=== PATIENT | female | born 1990 | race Caucasian/White ===

== ENCOUNTER 2017-11-10 18:08 | Inpatient (IN) | payer OTHER ==
--- NOTE | 2017-11-10 19:18 | RAD REPORT ---
EXAM DESCRIPTION: US - Abdomen Exam Limited - 11/10/2017 6:58 pm CLINICAL HISTORY: Abdominal pain. COMPARISON: None. FINDINGS: The gallbladder wall is not thickened. A gallstone is not seen. The biliary tree is normal caliber. IMPRESSION: Unremarkable gallbladder ultrasound.
[2017-11-10 20:15] LABS: Absolute Lymphocytes (CBC) 3.1 K/uL (0.7-4.9); Absolute Monocytes 0.9 K/uL (0.1-1.3); Absolute Neutrophil 9.8 K/uL (1.8-8.0); Basophils % 0.5 % (0-1.3); Eosinophils % 1.9 % (0-4.4); Hematocrit 36.8 % (36.0-45.0); MCH 29.6 pg (27.0-35.0); MCV 89.1 fL (80-100); MPV 8.4 fL (7.6-11.3); Monocytes % 6.6 % (3.3-12.3); RBC Red Blood Cell Count 4.13 M/uL (3.86-4.86)
[2017-11-10 20:30] LABS: ALT/SGPT 144 U/L (12-78); AST/SGOT 121 U/L (15-37); Albumin 3.4 g/dL (3.4-5.0); Alkaline Phosphatase 142 U/L (45-117); BUN Blood Urea Nitrogen 6 mg/dL (7-18); Bicarbonate 28 mmol/L (21-32); Bilirubin Direct 0.2 mg/dL (0-0.2); Bilirubin Total 1.2 mg/dL (0.2-1.0); Glucose Level 89 mg/dL (74-106); Lipase 94 U/L (73-393); Potassium 3.8 mmol/L (3.5-5.1); Protein, Total 7.4 g/dL (6.4-8.2); Sodium Level 137 mmol/L (136-145)
[2017-11-10 21:35] LABS: Urine Blood NEGATIVE (NEG); Urine Glucose NEGATIVE (NEG); Urine Protein NEGATIVE (NEG); Urine Specific Gravity 1.015 (1.005-1.030); Urine pH 7.5 (5.0-7.0)
[2017-11-10] MEDS ORDERED: FENTANYL CITR 100 MCG/2 ML ONE (21:35)
[2017-11-10] MEDS ORDERED: ONDANSETRON 4 MG/2 ML VIAL ONE (21:35)
--- NOTE | 2017-11-10 21:43 | RAD REPORT ---
EXAM DESCRIPTION: CT - Abdomen Pelvis W Contrast - 11/10/2017 9:20 pm CLINICAL HISTORY: Abdominal pain with nausea. COMPARISON: none. TECHNIQUE: Computed axial tomography of the abdomen pelvis was obtained. 100 cc Isovue-300 was admin istered intravenously. Oral contrast was not requested which limits evaluation of bowel. All CT scans are performed using dose optimization technique as appropriate and may include automated exposure control or mA/KV adjustment according to patient size. FINDINGS: The liver, spleen, pancreas, adrenal and kidneys appear unremarkable. A diverticulum stems from the proximal transverse colon. The colon is narrowed. Moderate stranding is seen within the adjacent fat. The appendix is normal. A 2 centimeter left ovarian cyst is present without significant free-fluid. IMPRESSION: Narrowing of the proximal transverse colon with moderate stranding within the adjacent f at. Given that a diverticulum is seen this probably represents diverticulitis. Neoplasm can also have this appearance. Followup is recommended A 2 centimeter left ovarian cyst without significant free-fluid.
--- NOTE | 2017-11-10 21:55 | EDPHYS ---
Physician Documentation [facility] Name: Carine Catalan Age: 27 yrs Sex: Female : 1990 Arrival Date: 11/10/2017 Time: 18:09 Bed 14 Private MD: ED Physician Manny Cruz HPI: 11/10 20:15 This 27 yrs old Female presents to ER via Ambulatory with complaints of jr8 Abdominal Pain. 20:15 The patient presents with abdominal pain in the right upper quadrant. Onset: The jr8 symptoms/episode began/occurred acutely, today. The symptoms do not radiate. Associated signs and symptoms: none. The symptoms are described as stabbing. Modifying factors: The symptoms are alleviated by nothing, the symptoms are aggravated by food. Severity of pain: At its worst the pain was moderate in the emergency department the pain has improved mildly. The patient has not experienced similar symptoms in the past. The patient has not recently seen a physician. 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 - Social history:: Smoking status: Patient/guardian denies using tobacco. - Ebola Screening: : Patient negative for fever greater than or equal to 101.5 degrees Fahrenheit, and additional compatible Ebola Virus Disease symptoms Patient denies exposure to infectious person Patient denies travel to an Ebola-affected area in the 21 days before illness onset No symptoms or risks identified at this time. ROS: 20:15 Eyes: Negative for injury, pain, redness, and discharge, ENT: Negative for injury, jr8 pain, and discharge, Neck: Negative for injury, pain, and swelling, Cardiovascular: Negative for chest pain, palpitations, and edema, Respiratory: Negative for shortness of breath, cough, wheezing, and pleuritic chest pain, Back: Negative for injury and pain, MS/Extremity: Negative for injury and deformity, Skin: Negative for injury, rash, and discoloration, Neuro: Negative for headache, weakness, numbness, tingling, and seizure. 20:15 Abdomen/GI: Positive for abdominal pain, Negative for nausea, vomiting, and diarrhea, abdominal distension, anorexia, dysphagia, hematemesis, black/tarry stool, rectal pain, rectal bleeding, bowel incontinence, flatulence. Exam: 20:15 Eyes: Pupils equal round and reactive to light, extra-ocular motions intact. Lids and jr8 lashes normal. Conjunctiva and sclera are non-icteric and not injected. Cornea within normal limits. Periorbital areas with no swelling, redness, or edema. ENT: Nares patent. No nasal discharge, no septal abnormalities noted. Tympanic membranes are normal and external auditory canals are clear. Oropharynx with no redness, swelling, or masses, exudates, or evidence of obstruction, uvula midline. Mucous membranes moist. Neck: Trachea midline, no thyromegaly or masses palpated, and no cervical lymphadenopathy. Supple, full range of motion without nuchal rigidity, or vertebral point tenderness. No Meningismus. Cardiovascular: Regular rate and rhythm with a normal S1 and S2. No gallops, murmurs, or rubs. Normal PMI, no JVD. No pulse deficits. Respiratory: Lungs have equal breath sounds bilaterally, clear to auscultation and percussion. No rales, rhonchi or wheezes noted. No increased work of breathing, no retractions or nasal flaring. Back: No spinal tenderness. No costovertebral tenderness. Full range of motion. Skin: Warm, dry with normal turgor. Normal color with no rashes, no lesions, and no evidence of cellulitis. MS/ Extremity: Pulses equal, no cyanosis. Neurovascular intact. Full, normal range of motion. Neuro: Awake and alert, GCS 15, oriented to person, place, time, and situation. Cranial nerves II-XII grossly intact. Motor strength 5/5 in all extremities. Sensory grossly intact. Cerebellar exam normal. Normal gait. 20:15 Abdomen/GI: Inspection: abdomen appears normal, Bowel sounds: active, all quadrants, Palpation: soft, in all quadrants, moderate abdominal tenderness, in the right upper quadrant and right lower quadrant , mass, is not appreciated, rebound tenderness, is not appreciated, voluntary guarding, is not appreciated, involuntary guarding, is not appreciated, no appreciated organomegaly, Indicators: McBurney's point is tender, Wall's sign is negative, Rovsing's sign is negative, Liver: tenderness, is not appreciated. Vital Signs: 18:38 BP 120 / 80; Pulse 105; Resp 16; Temp 97.6; Pulse Ox 99% on R/A; Weight 79.38 kg; aj Height 5 ft. 4 in. (162.56 cm); 20:35 BP 106 / 63; Pulse 94; Resp 16; Pulse Ox 100% ; ms 22:20 BP 104 / 54; Pulse 91; Resp 18; Temp 98.1(O); Pulse Ox 100% on R/A; Pain 3/10; ak1 22:36 BP 105 / 73; Pulse 93; Resp 18; Temp 98.1(O); Pulse Ox 100% on R/A; ak1 18:38 Body Mass Index 30.04 (79.38 kg, 162.56 cm) aj MDM: 19:42 Patient medically screened. jr8 21:54 Data reviewed: vital signs, nurses notes, lab test result(s), radiologic studies, CT jr8 scan, and as a result, I will admit patient. Data interpreted: Pulse oximetry: on room air is 100 %. Interpretation: normal. Counseling: I had a detailed discussion with the patient and/or guardian regarding: the historical points, exam findings, and any diagnostic results supporting the discharge/admit diagnosis, lab results, radiology results, the need for further work-up and treatment in the hospital. Physician consultation: Denise Nolasco MD was called at 21:54, was contacted at 21:54, regarding admission, to the medical/surgical unit. consult, patient's condition, and will see patient. 11/10 19:43 Order name: Basic Metabolic Panel; Complete Time: 20:52 11/10 19:43 Order name: CBC with Diff; Complete Time: 20:52 11/10 19:43 Order name: Creatinine for Radiology; Complete Time: 20:52 11/10 19:43 Order name: Hepatic Function; Complete Time: 20:52 11/10 19:43 Order name: Lipase; Complete Time: 20:52 11/10 20:06 Order name: Urine Dipstick--Ancillary (enter results); Complete Time: 21:43 2 11/10 18:40 Order name: US Abdomen Limited; Complete Time: 19:42 11/10 20:06 Order name: Urine --Ancillary (enter results); Complete Time: 21:43 2 11/10 20:53 Order name: CT Abd/Pelvis - W/Contrast; Complete Time: 21:45 8 11/10 22:38 Order name: Lactate [facility] 11/10 22:38 Order name: Procalcitonin [facility] 11/10 19:43 Order name: Urine Test (obtain specimen); Complete Time: 19:59 [facility] 11/10 19:43 Order name: IV Saline Lock; Complete Time: 19:59 [facility] 11/10 19:43 Order name: Labs collected and sent; Complete Time: 20:00 [facility] 11/10 19:43 Order name: Urine Dipstick-Ancillary (obtain specimen); Complete Time: 19:47 Administered Medications: 21:32 Drug: Zofran 4 mg Route: IVP; Site: right antecubital; ak1 22:21 Follow up: Response: No adverse reaction ak1 21:33 Drug: fentaNYL (PF) 50 mcg Route: IVP; Site: right antecubital; ak1 22:25 Follow up: Response: No adverse reaction ak1 21:58 Drug: Flagyl 500 mg Volume: 100 ml; Route: IVPB; Rate: 200 ml/hr; Infused Over: 30 ak1 mins; Site: right antecubital; 22:25 Follow up: IV Status: Completed infusion ak1 22:29 Drug: Cipro 400 mg Volume: 200 ml; Route: IVPB; Infused Over: 60 mins; Site: right ak1 antecubital; 23:04 Follow up: IV Status: Infusion continued upon admission ak1 22:29 Drug: NS 0.9% 1000 ml Route: IV; Rate: 100 ml/hr; Site: right antecubital; ak1 23:04 Follow up: IV Status: Infusion continued upon admission ak1 Disposition: 11/11 02:13 Co-signature as Attending Physician, Manny Cruz MD I agree with the assessment and ps1 plan of care. Disposition: 11/10/17 21:55 Hospitalization ordered by Denise Nolasco for Inpatient Admission. Preliminary diagnosis is Acute Diverticulitis. - Bed requested for Telemetry/MedSurg (Inpatient). - Status is Inpatient Admission. ak1 - Condition is Stable. - Problem is new. - Symptoms have improved. UTI on Admission? No Signatures: Dispatcher [employer] EDMS Myrtle Neves RN ERNA kl Marley Whitman RN Marquise Edwards PA PA jr8 Mayra Deras RN RN ak1 Manny Cruz MD MD ps1 Corrections: (The following items were deleted from the chart) 11/10 22:50 21:55 Hospitalization Ordered by Denise Nolasco MD for Inpatient Admission. Preliminary diagnosis is Acute Diverticulitis. Bed requested for Telemetry/MedSurg (Inpatient). Status is Inpatient Admission. Condition is Stable. Problem is new. Symptoms have improved. UTI on Admission? No. jr8 23:05 22:50 11/10/2017 21:55 Hospitalization Ordered by Denise Nolasco MD for Inpatient ak1 Admission. Preliminary diagnosis is Acute Diverticulitis. Bed requested for Telemetry/MedSurg (Inpatient). Status is Inpatient Admission. Condition is Stable. Problem is new. Symptoms have improved. UTI on Admission? No. kl
--- NOTE | 2017-11-10 21:55 | ER ---
Nurse's Notes [facility] Name: Carine Catalan Age: 27 yrs Sex: Female : 1990 Arrival Date: 11/10/2017 Time: 18:09 Bed 14 Private MD: Diagnosis: Acute Diverticulitis Presentation: 11/10 18:36 Presenting complaint: Patient states: Right abdominal pain that started yesterday aj morning. Reports pain and nausea is worse after eating. Transition of care: patient was not received from another setting of care. Onset of symptoms was November 09, 2017. Risk Assessment: Do you want to hurt yourself or someone else? Patient reports no desire to harm self or others. Initial Sepsis Screen: Does the patient meet any 2 criteria? No. Patient's initial sepsis screen is negative. Does the patient have a suspected source of infection? No. Patient's initial sepsis screen is negative. Care prior to arrival: None. 18:36 Method Of Arrival: Ambulatory aj 18:36 Acuity: HARISH 3 aj Triage Assessment: 18:38 General: Appears in no apparent distress. comfortable, Behavior is calm, cooperative, aj appropriate for age. Pain: Complains of pain in right upper quadrant and right lower quadrant. Neuro: Level of Consciousness is awake, alert, obeys commands, Oriented to person, place, time, situation, Appropriate for age. Respiratory: Airway is patent Respiratory effort is even, unlabored, Respiratory pattern is regular, symmetrical. GI: Abdomen is flat, Reports upper abdominal pain, nausea. Derm: Skin is intact, is healthy with good turgor, Skin is pink, warm \T\ dry. normal. 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 - Social history:: Smoking status: Patient/guardian denies using tobacco. - Ebola Screening: : Patient negative for fever greater than or equal to 101.5 degrees Fahrenheit, and additional compatible Ebola Virus Disease symptoms Patient denies exposure to infectious person Patient denies travel to an Ebola-affected area in the 21 days before illness onset No symptoms or risks identified at this time. Screenin:35 Abuse screen: Denies threats or abuse. Denies injuries from another. Nutritional ak1 screening: No deficits noted. Tuberculosis screening: No symptoms or risk factors identified. Fall Risk None identified. Assessment: 19:34 General: Appears in no apparent distress. Behavior is calm, cooperative. Pain: ak1 Complains of pain in abdomen and right lower quadrant and right upper quadrant. Neuro: No deficits noted. Cardiovascular: No deficits noted. Respiratory: No deficits noted. GI: Bowel sounds present X 4 quads. Abd is soft X 4 quads. : No signs and/or symptoms were reported regarding the genitourinary system. EENT: No signs and/or symptoms were reported regarding the EENT system. Derm: No signs and/or symptoms reported regarding the dermatologic system. Musculoskeletal: No signs and/or symptoms reported regarding the musculoskeletal system. 20:53 Reassessment: Patient appears in no apparent distress at this time. No changes from ak1 previously documented assessment. Patient is alert, oriented x 3, equal unlabored respirations, skin warm/dry/pink. 21:26 Reassessment: pt returned from CT requesting pain medication, ERP notified. will ak1 continue to monitor and wait for new orders. Vital Signs: 18:38 BP 120 / 80; Pulse 105; Resp 16; Temp 97.6; Pulse Ox 99% on R/A; Weight 79.38 kg; aj Height 5 ft. 4 in. (162.56 cm); 20:35 BP 106 / 63; Pulse 94; Resp 16; Pulse Ox 100% ; ms 22:20 BP 104 / 54; Pulse 91; Resp 18; Temp 98.1(O); Pulse Ox 100% on R/A; Pain 3/10; ak1 22:36 BP 105 / 73; Pulse 93; Resp 18; Temp 98.1(O); Pulse Ox 100% on R/A; ak1 18:38 Body Mass Index 30.04 (79.38 kg, 162.56 cm) ED Course: 18:09 Patient arrived in ED. am2 18:37 Triage completed. aj 18:38 Arm band placed on right wrist. Patient placed in waiting room, Patient notified of aj wait time. 18:58 US Abdomen Limited In Process Unspecified. EDMS 19:29 Mayra Deras, RN is Primary Nurse. ak1 19:35 Patient has correct armband on for positive identification. Placed in gown. Bed in low ak1 position. Call light in reach. Side rails up X 1. Pulse ox on. NIBP on. 19:42 Marquise Escobar PA is PHCP. jr8 19:42 Manny Cruz MD is Attending Physician. jr8 20:02 Initial lab(s) drawn, by me, sent to lab. Urine collected: clean catch specimen. ak1 Inserted saline lock: 20 gauge in right antecubital area, using aseptic technique. Blood collected. 21:[address] via wheelchair. 2 21:20 CT completed. Patient tolerated procedure well. Patient moved back from CT. 2 21:28 CT Abd/Pelvis - W/Contrast In Process Unspecified. EDOH 21:55 Denise Nolasco MD is Hospitalizing Provider. jr8 23:01 No provider procedures requiring assistance completed. Patient admitted, IV remains in ak1 place. Administered Medications: 21:32 Drug: Zofran 4 mg Route: IVP; Site: right antecubital; ak1 22:21 Follow up: Response: No adverse reaction ak1 21:33 Drug: fentaNYL (PF) 50 mcg Route: IVP; Site: right antecubital; ak1 22:25 Follow up: Response: No adverse reaction ak1 21:58 Drug: Flagyl 500 mg Volume: 100 ml; Route: IVPB; Rate: 200 ml/hr; Infused Over: 30 ak1 mins; Site: right antecubital; 22:25 Follow up: IV Status: Completed infusion ak1 22:29 Drug: Cipro 400 mg Volume: 200 ml; Route: IVPB; Infused Over: 60 mins; Site: right ak1 antecubital; 23:04 Follow up: IV Status: Infusion continued upon admission ak1 22:29 Drug: NS 0.9% 1000 ml Route: IV; Rate: 100 ml/hr; Site: right antecubital; ak1 23:04 Follow up: IV Status: Infusion continued upon admission ak Outcome: 21:55 Decision to Hospitalize by Provider. jr8 23:03 Admitted to Med/surg accompanied by tech, family with patient, via wheelchair, room ak1 208, with chart, Other Cipro locked off to be continued upstairs, Hawa nurse for 208 informed. Report called to [facility]a 23:03 Condition: stable 23:03 Instructed on the need for admit. 23:05 Patient left the ED. ak1 Signatures: Dispatcher [employer] EDMarley Martinez, Luzmaria Jolly RN, ms, Josh, PA PA jr8 Krenek, Amber, RN RN ak1 Marley Abel am2 Michelle Pederson [facility]
[2017-11-10] MEDS ORDERED: METRONIDAZOLE 500mg IVPB 500 MG/100 ML BAG IV ONE (21:56)
[2017-11-10] MEDS ORDERED: CIPROFLOXACIN 400mg IV 400 MG/200 ML BAG IV ONE (22:13)
[2017-11-10] MEDS ORDERED: NA CHLORIDE 0.9% 1,000 ML ONE (22:13)
--- NOTE | 2017-11-10 22:45 | P.HP ---
Certification for Inpatient Patient admitted to: Inpatient With expected LOS: >2 Midnights Practitioner: I am a practitioner with admitting privileges, knowledge of patient current condition, hospital course, and medical plan of care. Services: Services provided to patient in accordance with Admission requirements found in Title 42 Section 412.3 of the Code of Federal Regulations Patient History Date of Service: 11/10/17 Reason for admission: acute diverticulitis History of Present Illness: Ms Catalan is a 27 years old woman with pretty benign past medical history, who started yesterday morning with right upper quadrant pain. She describe a constant dull pain, with periods of exacerbation. intensity 8/10, no radiated, associated with some nausea but not vomiting. She denied fever, chills or sweating episodes. No diarrhea reported. Lab work remarkable for leukocytosis, 14.2K, and abnormal liver enzymes. Abd US shows normal biliary tree without duct obstruction. CT abd/perlvis, remarkable for proximal transverse colon diverticulitis. Allergies No Known Allergies Allergy (Unverified 11/10/17 22:40) Home medications list reviewed: Yes - Past Medical/Surgical History Past Medical History: Reviewed- Non-Contributory -: x 2 - Family History Family History: Reviewed- Non-Contributory - Social History Smoking Status: Never smoker Alcohol use: Yes CD- Drugs: No Place of Residence: Home Review of Systems 10-point ROS is otherwise unremarkable Physical Examination - Physical Exam General: Alert, In no apparent distress HEENT: Atraumatic, PERRLA, Mucous membr. moist/pink, EOMI, Sclerae nonicteric Neck: Supple, 2+ carotid pulse no bruit, No LAD, Without JVD or thyroid abnormality Respiratory: Clear to auscultation bilaterally, Normal air movement Cardiovascular: Regular rate/rhythm, Normal S1 S2 Gastrointestinal: Normal bowel sounds, Tenderness (RUQ) Musculoskeletal: No tenderness Integumentary: No rashes Neurological: Normal speech, Normal strength at 5/5 x4 extr, Normal tone, Normal affect Lymphatics: No axilla or inguinal lymphadenopathy - Studies Laboratory Data (last 24 hrs) 11/10/17 19:50: Creatinine 0.70 11/10/17 19:50: WBC 14.2 H, Hgb 12.2, Hct 36.8, Plt Count 283 11/10/17 19:50: Sodium 137, Potassium 3.8, BUN 6 L, Creatinine 0.70, Glucose 89 , Total Bilirubin 1.2 H, AST 121 H, ALT 144 H, Alkaline Phosphatase 142 H, Lipase 94 Assessment and Plan - Problems (Diagnosis) (1) Diverticulitis Current Visit: Yes Status: Acute - Plan The patient will be admitted to the hospital due to acute diverticulitis. Will start IV Cipro and Flagyl, IV fluids. She will need GI evaluation during this admission or when resolve this acute episode. - Advance Directives Does patient have a Living Will: No Does patient have a Durable POA for Healthcare: No - Code Status/Comfort Care Code Status Assessed: Yes Code Status: Full Code
[2017-11-10] MEDS ORDERED: ACETAMINOPHEN 500 MG TAB PO PRN (22:58)
[2017-11-10] MEDS ORDERED: SODIUM CHLORIDE 0.9% 10ML INJ IV PRN (22:58)
[2017-11-10] MEDS ORDERED: ONDANSETRON 4 MG/2 ML VIAL IV PRN (22:58)
[2017-11-10] MEDS ORDERED: KETOROLAC 30 MG/ML INJ IV PRN (22:58)
[2017-11-10] MEDS: NA CHLORIDE 0.9% 1,000 ML IV SCH (23:00)
[2017-11-11 04:52] LABS: Absolute Lymphocytes (CBC) 2.5 K/uL (0.7-4.9); Absolute Neutrophil 9.4 K/uL (1.8-8.0); Basophils % 0.4 % (0-1.3); Eosinophils % 2.1 % (0-4.4); Hematocrit 35.5 % (36.0-45.0); Lymphocytes % 18.9 % (15.3-44.8); MCH 30.1 pg (27.0-35.0); MCV 89.7 fL (80-100); MPV 8.3 fL (7.6-11.3); Monocytes % 7.9 % (3.3-12.3); RBC Red Blood Cell Count 3.96 M/uL (3.86-4.86)
[2017-11-11 05:05] LABS: Albumin 3.1 g/dL (3.4-5.0); Bilirubin Total 1.4 mg/dL (0.2-1.0); Potassium 4.3 mmol/L (3.5-5.1); Protein, Total 6.6 g/dL (6.4-8.2)
[2017-11-11] MEDS: METRONIDAZOLE 500mg IVPB 500 MG/100 ML BAG IV SCH ×3 (05:20→21:44)
[2017-11-11] MEDS: CIPROFLOXACIN 400mg IV 400 MG/200 ML BAG IV SCH ×2 (09:37→20:18)
[2017-11-11] MEDS: PANTOPRAZOLE 40 MG INJ IVP SCH (09:39)
[2017-11-11] MEDS: NA CHLORIDE 0.9% 1,000 ML IV SCH ×2 (09:48→19:00)
--- NOTE | 2017-11-11 14:15 | P.PN ---
Subjective Date of Service: 11/11/17 Chief Complaint: acute diverticulitis Subjective: Improving (Patient able tolerate a clear liquid diet.) Physical Examination - Vital Signs Temperature: 97.2 F Blood Pressure: 97/51 Pulse: 84 Respirations: 18 Pulse Ox (%): 97 - Physical Exam General: Alert, In no apparent distress, Oriented x3, Cooperative HEENT: Atraumatic Neck: Supple Respiratory: Clear to auscultation bilaterally, Normal air movement Cardiovascular: Normal pulses, Regular rate/rhythm Gastrointestinal: Normal bowel sounds, Soft and benign, Non-distended, No masses , No rebound, No guarding, Tenderness (Less pain to the right upper quadrant) Musculoskeletal: No erythema, No tenderness, No warmth Integumentary: No tenderness/swelling, No erythema, No warmth, No cyanosis Neurological: Normal speech, Normal strength at 5/5 x4 extr, Normal tone, Normal affect - Studies Laboratory Data (last 24 hrs) 11/10/17 19:50: Creatinine 0.70 11/10/17 19:50: WBC 14.2 H, Hgb 12.2, Hct 36.8, Plt Count 283 11/10/17 19:50: Sodium 137, Potassium 3.8, BUN 6 L, Creatinine 0.70, Glucose 89 , Total Bilirubin 1.2 H, AST 121 H, ALT 144 H, Alkaline Phosphatase 142 H, Lipase 94 Medications List Reviewed: Yes Assessment & Plan Physician Review Additional Text: Impression: Abdominal pain secondary to proximal transverse diverticulitis Elevated liver function with hyperbilirubinemia Plan: Will continue with IV antibiotic therapy. Will continue with IV fluids. Will continue monitor patient closely. If the patient tolerates clear liquids will consider advancing her diet to a full liquid today and possibly a soft diet tomorrow. Encourage ambulation. Will obtain hepatitis panel due to elevated liver function. Patient will need colonoscopy in 4-6 weeks with GI follow up. Will continue to monitor patient closely. Will reassess tomorrow. Time Spent Managing Pts Care (In Minutes): 55
[2017-11-11] MEDS ORDERED: TRAMADOL HCL 50 MG TAB PO PRN (14:16)
[2017-11-11] MEDS ORDERED: HYDROCODONE/APAP 7.5/325 MG TAB PO PRN (14:16)
[2017-11-11] MEDS ORDERED: ENOXAPARIN 40 MG/0.4 ML SQ SCH (17:00)
[2017-11-12 04:57] LABS: Absolute Lymphocytes (CBC) 2.6 K/uL (0.7-4.9); Absolute Monocytes 0.9 K/uL (0.1-1.3); Absolute Neutrophil 7.4 K/uL (1.8-8.0); Basophils % 0.5 % (0-1.3); Eosinophils % 4.1 % (0-4.4); Hematocrit 34.5 % (36.0-45.0); Lymphocytes % 23.2 % (15.3-44.8); MCH 29.8 pg (27.0-35.0); MCV 89.7 fL (80-100); MPV 8.3 fL (7.6-11.3); RBC Red Blood Cell Count 3.85 M/uL (3.86-4.86)
[2017-11-12 05:09] LABS: BUN Blood Urea Nitrogen 5 mg/dL (7-18); Bicarbonate 26 mmol/L (21-32); Glucose Level 97 mg/dL (74-106); Magnesium 2.2 mg/dL (1.8-2.4); Sodium Level 140 mmol/L (136-145)
[2017-11-12] MEDS: METRONIDAZOLE 500mg IVPB 500 MG/100 ML BAG IV SCH (05:13)
[2017-11-12] MEDS: NA CHLORIDE 0.9% 1,000 ML IV SCH (05:13)
[2017-11-12] MEDS ORDERED: CETIRIZINE HCL 5 MG TABLET PO SCH (09:00)
[2017-11-12] MEDS: CIPROFLOXACIN 400mg IV 400 MG/200 ML BAG IV SCH (09:37)
[2017-11-12] MEDS: PANTOPRAZOLE 40 MG INJ IVP SCH (09:38)
--- NOTE | 2017-11-12 12:17 | P.DS ---
Admission Date: 11/10/17 Discharge Date: 11/12/17 Primary Care Provider: [facility] Disposition: ROUTINE DISCHARGE Discharge Condition: GOOD Reason for Admission: acute diverticulitis Procedures: CT scan: COMPARISON: none. TECHNIQUE: Computed axial tomography of the abdomen pelvis was obtained. 100 cc Isovue-300 was administered intravenously. Oral contrast was not requested which limits evaluation of bowel. All CT scans are performed using dose optimization technique as appropriate and may include automated exposure control or mA/KV adjustment according to patient size. FINDINGS: The liver, spleen, pancreas, adrenal and kidneys appear unremarkable. A diverticulum stems from the proximal transverse colon. The colon is narrowed. Moderate stranding is seen within the adjacent fat. The appendix is normal. A 2 centimeter left ovarian cyst is present without significant free-fluid. IMPRESSION: Narrowing of the proximal transverse colon with moderate stranding within the adjacent fat. Given that a diverticulum is seen this probably represents diverticulitis. Neoplasm can also have this appearance. A 2 centimeter left ovarian cyst without significant free-fluid. Abdominal ultrasound: COMPARISON: None. FINDINGS: The gallbladder wall is not thickened. A gallstone is not seen. The biliary tree is normal caliber. IMPRESSION: Unremarkable gallbladder ultrasound Medical problem list: Abdominal pain secondary to proximal transverse diverticulitis Elevated liver function likely related to abdominal pain 2 cm left ovarian cyst Seasonal allergies Brief History of Present Illness: 27-year-old female presented emergency room with abdominal pain mainly to the right upper quadrant. Patient was evaluated in the emergency room. CT scan showed narrowing of the proximal transverse colon with moderate stranding within the adjacent fat. Given there was a diverticulum, diverticulitis was suspected. CT scan also revealed a 2 cm left ovarian cyst. Patient was admitted for treatment. Hospital Course: Patient presented with abdominal pain scan revealed proximal transverse diverticulitis with left ovarian cyst. Patient was admitted. Patient received IV fluids, antibiotics and pain medication. Patient did well during her stay. At discharge she is without any significant pain. She has tolerated a diet. At discharge she will continue with Cipro 500 mg twice daily and Flagyl 500 mg 1 pill 3 times a day for 10 days. Recommendation is for the patient to follow up with GI within 1 week to follow up this hospitalization and to continue her care. Recommendation is for a colonoscopy in 4-6 weeks to further address. Patient had elevated liver function. Hepatitis panel pending at discharge. This can be followed up by her PCP. CT scan and abdominal ultrasound did not show any liver abnormality. Recommendation is to recheck lab-CMP in 2-4 weeks to monitor resolution. Patient has 2 cm left ovarian cyst. Recommendation is for the patient follow up with gynecology to further monitor. Patient may require repeat ultrasound in the future to monitor her progress. Patient has seasonal allergies. She will continue with her medications including Zyrtec 10 mg daily and Singulair 10 mg daily. Vital Signs/Physical Exam: Temp Pulse Resp BP Pulse Ox 97.0 F 62 18 109/60 97 11/12/17 08:00 11/12/17 08:00 11/12/17 08:00 11/12/17 08:00 11/12/17 08:00 General: Alert, In no apparent distress, Oriented x3, Cooperative HEENT: Atraumatic Neck: Supple Respiratory: Clear to auscultation bilaterally, Normal air movement Cardiovascular: Normal pulses, Regular rate/rhythm Gastrointestinal: Normal bowel sounds, Soft and benign, Non-distended, No tenderness, No masses, No rebound, No guarding Musculoskeletal: No erythema, No tenderness, No warmth Integumentary: No tenderness/swelling, No erythema, No warmth, No cyanosis Neurological: Normal speech, Normal strength at 5/5 x4 extr, Normal tone, Normal affect Laboratory Data at Discharge: WBC 11.4 K/uL (4.3-10.9) H D 11/12/17 04:14 Hgb 11.5 g/dL (12.0-15.0) L 11/12/17 04:14 Hct 34.5 % (36.0-45.0) L 11/12/17 04:14 Plt Count 255 K/uL (152-406) 11/12/17 04:14 Sodium 140 mmol/L (136-145) 11/12/17 04:14 Potassium 4.0 mmol/L (3.5-5.1) 11/12/17 04:14 BUN 5 mg/dL (7-18) L 11/12/17 04:14 Creatinine 0.60 mg/dL (0.55-1.3) 11/12/17 04:14 Glucose 97 mg/dL (74-106) 11/12/17 04:14 Magnesium 2.2 mg/dL (1.8-2.4) 11/12/17 04:14 Total Bilirubin 1.4 mg/dL (0.2-1.0) H 11/11/17 04:12 AST 71 U/L (15-37) H 11/11/17 04:12 ALT 111 U/L (12-78) H 11/11/17 04:12 Alkaline Phosphatase 120 U/L (45-117) H 11/11/17 04:12 Lipase 94 U/L (73-393) 11/10/17 19:50 Home Medications: Albuterol Sulfate [Proair Hfa] 1 puff IH ONCE PRN 11/11/17 Patient Discharge Instructions: 1. Patient will need a follow up with a PCP in 1 week to follow up this hospitalization. 2. Patient presented with abdominal pain. CT scan revealed proximal transverse diverticulitis with left ovarian cyst. Patient was admitted and received IV fluids, antibiotics and pain medication. Patient did well during her stay. At discharge she is without any significant pain. She has tolerated a diet. At discharge she will continue with Cipro 500 mg twice daily and Flagyl 500 mg 1 pill 3 times a day for 10 days. Recommendation is for the patient to follow up with GI within 1 week to follow up this hospitalization and to continue her care. Recommendation is for a colonoscopy in 4-6 weeks to further address. Patient will continue with a low residue diet. 3. Patient had elevated liver function. Hepatitis panel pending at discharge. This can be followed up by her PCP. CT scan and abdominal ultrasound did not show any liver abnormality. Recommendation is to recheck lab-CMP in 2-4 weeks to monitor resolution. 4. Patient has 2 cm left ovarian cyst. Recommendation is for the patient follow up with gynecology to further monitor. Patient may require repeat ultrasound in the future to monitor her progress. 5. Patient has a history of seasonal allergies. This can be followed up by her PCP. Patient will continue with her medication. This includes Singulair 10 mg daily and Zyrtec 10 mg daily. Diet: Low residue diet Activity: Ad oliva Time spent managing pt's care (in minutes): 55
[2017-11-12] MEDS ORDERED: MONTELUKAST 10 MG TAB PO SCH (21:00)
[2017-11-15 03:30] LABS: HBsAG Nonreactive (Nonreactive); Hepatitis A IgM Antibody Nonreactive
== END 2017-11-12 14:35 | disposition home or self-care (01) | DRG 392 ==
LOC: ER 18:08 → ERHOLD 22:42 → 2ND 22:56
PROVIDERS: ADMIT Internal Medicine; ATTEND Family Medicine
DX: K57.32 Diverticulitis of large intestine without perforation or abscess without bleeding (principal); N83.202 Unspecified ovarian cyst, left side; J30.2 Other seasonal allergic rhinitis; R94.5 Abnormal results of liver function studies
CPT/HCPCS: 36415; 74177; 76705; 80048; 80053; 80074; 80076; 81003; 81025; 83605; 83690; 83735; 84145; 85025; 96365; 96367; 96375; 99285; C9113; J0744; J1650; J2405; J3010; J7030; Q9967

== ENCOUNTER 2022-02-26 14:56 | Emergency (ER) | payer OTHER ==
[2022-02-26 15:40] LABS: Absolute Lymphocytes (CBC) 1.8 K/uL (0.7-4.9); Hematocrit 37.3 % (36.0-45.0); Lymphocytes % 22.7 % (15.3-44.8); MCV 91.3 fL (80-100); RBC Red Blood Cell Count 4.09 M/uL (3.86-4.86)
[2022-02-26 15:51] LABS: Magnesium 2.3 mg/dL (1.6-2.4); Potassium 3.6 mmol/L (3.5-5.1); Troponin High Sensitivity 3.1 pg/mL (<58.9)
--- NOTE | 2022-02-26 15:57 | RAD REPORT ---
EXAM DESCRIPTION: RAD - Chest Single View - 02/26/2022 3:32 pm CLINICAL HISTORY: CHEST PAIN COMPARISON: Two view chest May 2020 TECHNIQUE: AP portable chest image was obtained 02/26/2022 3:32 pm . FINDINGS: Lungs are clear. Heart and vasculature are normal. No measurable pleural effusion and no p neumothorax. No acute bony abnormality seen. No acute aortic findings suspected. IMPRESSION: No acute cardiopulmonary process. No significant change from comparison study.
[2022-02-26 16:42] LABS: MPV 8.4 fL (7.6-11.3)
--- NOTE | 2022-02-26 17:00 | ER ---
Nurse's Notes [facility] Name: Carine Catalan Age: 31 yrs Sex: Female : 1990 Arrival Date: 02/26/2022 Time: 14:56 Bed 12 Private MD: Diagnosis: Chest pain, unspecified Presentation: 02/26 15:10 Chief complaint: Patient states: intermittent mid-sternal CP x2 days with associated kb3 heartburn and belching. Coronavirus screen: Vaccine status: Patient reports being unvaccinated. Client denies travel out of the [place] in the last 14 days. Ebola Screen: Patient negative for fever greater than or equal to 101.5 degrees Fahrenheit, and additional compatible Ebola Virus Disease symptoms Patient denies exposure to infectious person. Patient denies travel to an Ebola-affected area in the 21 days before illness onset. Initial Sepsis Screen: Does the patient meet any 2 criteria? No. Patient's initial sepsis screen is negative. Does the patient have a suspected source of infection? No. Patient's initial sepsis screen is negative. Risk Assessment: Do you want to hurt yourself or someone else? Patient reports no desire to harm self or others. Onset of symptoms was February 24, 2022. 15:10 Method Of Arrival: Ambulatory kb3 15:10 Acuity: HARISH 3 kb3 Triage Assessment: 15:12 General: Appears in no apparent distress. Behavior is calm, cooperative. Pain: kb3 Complains of pain in mid-sternal area Pain does not radiate. Pain currently is 2 out of 10 on a pain scale. Quality of pain is described as. 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 Last tetanus immunization: up to date. - Social history:: Smoking status: Patient denies any tobacco usage or history of. Screenin:[address] [facility] ED Fall Risk Assessment (Adult) Score/Fall Risk Level 0 - 2 = Low Risk hb Oriented to surroundings, Maintained a safe environment. Abuse screen: Denies threats or abuse. Denies injuries from another. Nutritional screening: No deficits noted. Tuberculosis screening: No symptoms or risk factors identified. Assessment: 15:35 General: Appears in no apparent distress. Behavior is calm, cooperative. Pain: Pain hb currently is 2 out of 10 on a pain scale. Neuro: Level of Consciousness is awake, alert, obeys commands, Oriented to person, place, time, situation. Cardiovascular: Reports chest pain, Patient's skin is warm and dry. Respiratory: Respiratory effort is even, unlabored, Respiratory pattern is regular, symmetrical. GI: No deficits noted. No signs and/or symptoms were reported involving the gastrointestinal system. : No deficits noted. No signs and/or symptoms were reported regarding the genitourinary system. EENT: No signs and/or symptoms were reported regarding the EENT system. Derm: Skin is pink, warm \T\ dry. Musculoskeletal: No signs and/or symptoms reported regarding the musculoskeletal system. 15:59 Reassessment: Patient appears in no apparent distress at this time. Patient and/or hb family updated on plan of care and expected duration. Pain level reassessed. Patient is alert, oriented x 3, equal unlabored respirations, skin warm/dry/pink. 16:59 Reassessment: Patient appears in no apparent distress at this time. Patient and/or hb family updated on plan of care and expected duration. Pain level reassessed. Patient is alert, oriented x 3, equal unlabored respirations, skin warm/dry/pink. Vital Signs: 15:10 BP 121 / 87; Pulse 94; Resp 20; Temp 98.8; Pulse Ox 100% ; Weight 77.11 kg; Height 5 kb3 ft. 4 in. (162.56 cm); Pain 2/10; 15:59 BP 98 / 64; Pulse 88; Resp 16; Pulse Ox 99% on R/A; Pain 3/10; hb 16:59 BP 97 / 62; Pulse 86; Resp 16; Pulse Ox 100% on R/A; hb 15:10 Body Mass Index 29.18 (77.11 kg, 162.56 cm) kb3 ED Course: 14:56 Patient arrived in ED. as 15:00 Tiffanie Frye FNP-C is [facility]. kb 15:00 Reynaldo Nunez DO is Attending Physician. kb 15:12 Triage completed. kb3 15:12 Arm band placed on right wrist. Patient placed in an exam room, on a stretcher. kb3 15:15 Chayo Stephens, RN is Primary Nurse. hb 15:21 Inserted saline lock: 20 gauge in left antecubital area, using aseptic technique. Blood hb collected. 15:34 XRAY Chest (1 view) In Process Unspecified. EDMS 15:35 Patient maintains SpO2 saturation greater than 95% on room air. hb 15:45 Patient has correct armband on for positive identification. Client placed on continuous hb cardiac and pulse oximetry monitoring. NIBP monitoring applied. 17:07 No provider procedures requiring assistance completed. IV discontinued, intact, hb bleeding controlled, No redness/swelling at site. Administered Medications: No medications were administered Medication: 15:35 VIS not applicable for this client. hb Outcome: 17:00 Discharge ordered by MD. kb 17:07 Discharged to home ambulatory. hb 17:07 Condition: stable 17:07 Discharge instructions given to patient, Instructed on discharge instructions, follow up and referral plans. medication usage, Demonstrated understanding of instructions, follow-up care, medications. 17:07 Patient left the ED. hb Signatures: Dispatcher [employer] EDVT Tiffanie Frye FNP-C CHIEF SUBSTATION OPERATOR-Colette Rowley as Chayo Stephens, RN RN Stacey Cordova RN RN kb3 Corrections: (The following items were deleted from the chart) 15:13 15:12 Home Meds: GERD; kb3 kb3
--- NOTE | 2022-02-26 17:00 | EDPHYS ---
Physician Documentation [facility] Name: Carine Catalan Age: 31 yrs Sex: Female : 1990 Arrival Date: 02/26/2022 Time: 14:56 Bed 12 Private MD: ED Physician Reynaldo Nunez HPI: 02/26 15:35 This 31 yrs old Female presents to ER via Ambulatory with complaints of Chest Pain. kb 15:37 The patient or guardian reports chest pain that is located primarily in the xiphoid kb area. The pain does not radiate. Associated signs and symptoms: Pertinent positives: shortness of breath. The chest pain is described as intermittent. Duration: The patient or guardian reports multiple episodes, that are intermittent, with no pattern, the episodes last approximately 1 minute(s). Modifying factors: The symptoms are alleviated by nothing. the symptoms are aggravated by nothing. Severity of pain: At its worst the pain was moderate in the emergency department the pain has improved. The patient has not experienced similar symptoms in the past. The patient has been recently seen by a physician:. Pt reports intermittent chest pain for 2 days. Reports shortness of breath yesterday that resolved after using albuterol inhaler. States the cold front coming in exacerbated her asthma. Also reports intermittent numbness/tingling to right arm and right side of face since thanksgi. Has been seen by PCP and neurologist for this. MRI was normal, nerve test scheduled for March. . 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 Last tetanus immunization: up to date. - Social history:: Smoking status: Patient denies any tobacco usage or history of. ROS: 15:35 Constitutional: Negative for fever, chills, and weight loss. kb 15:35 Cardiovascular: Positive for chest pain, Negative for edema, orthopnea, palpitations, paroxysmal nocturnal dyspnea. 15:35 Neuro: Positive for tingling, of the right side of head and right arm. 15:35 All other systems are negative. 15:35 Respiratory: Positive for shortness of breath. kb Exam: 15:34 Constitutional: This is a well developed, well nourished patient who is awake, alert, kb and in no acute distress. Head/Face: Normocephalic, atraumatic. ENT: Moist Mucous membranes Chest/axilla: Normal chest wall appearance and motion. Cardiovascular: Regular rate and rhythm with a normal S1 and S2. No gallops, murmurs, or rubs. No pulse deficits. Respiratory: Respirations even and unlabored. No increased work of breathing. Talking in full sentences Abdomen/GI: Soft, non-tender. No distention Skin: Warm, dry with normal turgor. Normal color. MS/ Extremity: Pulses equal, no cyanosis. Neurovascular intact. Full, normal range of motion. Neuro: Awake and alert, GCS 15, oriented to person, place, time, and situation. Moves all extremities. Normal gait. Psych: Awake, alert, with orientation to person, place and time. Behavior, mood, and affect are within normal limits. 15:34 ECG was reviewed by the Attending Physician. Vital Signs: 15:10 BP 121 / 87; Pulse 94; Resp 20; Temp 98.8; Pulse Ox 100% ; Weight 77.11 kg; Height 5 kb3 ft. 4 in. (162.56 cm); Pain 2/10; 15:59 BP 98 / 64; Pulse 88; Resp 16; Pulse Ox 99% on R/A; Pain 3/10; hb 16:59 BP 97 / 62; Pulse 86; Resp 16; Pulse Ox 100% on R/A; hb 15:10 Body Mass Index 29.18 (77.11 kg, 162.56 cm) kb3 MDM: 15:09 Patient medically screened. kb 15:34 Data reviewed: vital signs, nurses notes. Data interpreted: Pulse oximetry: on room air kb is 100 %. Interpretation: normal. 16:59 Counseling: I had a detailed discussion with the patient and/or guardian regarding: the kb historical points, exam findings, and any diagnostic results supporting the discharge/admit diagnosis, lab results, radiology results, the need for outpatient follow up, a family practitioner, to return to the emergency department if symptoms worsen or persist or if there are any questions or concerns that arise at home. 02/26 15:09 Order name: Basic Metabolic Panel; Complete Time: 16:01 kb 02/26 15:09 Order name: CBC with Diff; Complete Time: 16:46 kb 02/26 15:09 Order name: D-Dimer; Complete Time: 15:39 kb 02/26 15:09 Order name: Magnesium; Complete Time: 16:01 kb 02/26 15:09 Order name: Troponin HS; Complete Time: 16:01 kb 02/26 15:09 Order name: XRAY Chest (1 view); Complete Time: 16:01 kb 02/26 15:09 Order name: EKG; Complete Time: 15:10 kb 02/26 15:09 Order name: Cardiac monitoring; Complete Time: 15:34 kb 02/26 15:09 Order name: EKG - Nurse/Tech; Complete Time: 15:34 kb 02/26 15:09 Order name: IV Saline Lock; Complete Time: 15:34 kb 02/26 15:09 Order name: Labs collected and sent; Complete Time: 15:34 kb 02/26 15:09 Order name: O2 Per Protocol; Complete Time: 15:34 kb 02/26 15:09 Order name: O2 Sat Monitoring; Complete Time: 15:34 kb EC:34 Rate is 74 beats/min. Rhythm is regular. QRS [place] is Normal. [place] interval is normal at kb 144 msec. QRS interval is normal at 76 msec. QT interval is normal at 397 msec. Administered Medications: No medications were administered Disposition: 18:03 Co-signature as Attending Physician, Reynaldo BECERRIL was immediately available on-site ms3 in the Emergency Department for consultation in the care of the patient. Disposition Summary: 02/26/22 17:00 Discharge Ordered Location: Home kb Condition: Stable kb Diagnosis - Chest pain, unspecified kb Followup: kb - With: Emergency Department - When: As needed - Reason: Worsening of condition Followup: kb - With: Private Physician - When: 2 - 3 days - Reason: Recheck today's complaints, Continuance of care, Re-evaluation by your physician Discharge Instructions: - Discharge Summary Sheet kb - Nonspecific Chest Pain, Adult, [id number] kb Forms: - Medication Reconciliation Form kb - Thank You Letter kb - Antibiotic Education kb - Prescription Opioid Use kb Signatures: Dispatcher [employer] EDMS Tiffanie Frye, DOMINICK-C DOMINICK-Reynaldo Ag DO DO ms3 Stacey Cordova, RN RN kb3 Corrections: (The following items were deleted from the chart) 15:13 15:12 Home Meds: GERD; kb3 kb3
[2022-02-26 17:36] VITALS: TEMP 98.8
[2022-02-26 17:38] VITALS: BP 97/62; O2SAT 100
--- NOTE | 2022-02-28 17:03 | EKG ---
Test Date: 2022-02-26 Test Time: 15:30:17 Hand Sample Maker: HB MEASUREMENT RESULTS: Intervals: Rate: 74 NV: 144 QRSD: 76 QT: 358 QTc: 397 [place]: P: 45 NV: 144 QRS: 58 T: 45 INTERPRETIVE STATEMENTS: Normal sinus rhythm Normal ECG No previous ECG available for comparison Electronically Signed On 02-28-22 17:01:55 DIRECTOR OF DISTRICT OFFICE by Vadim Asencio
== END 2022-02-26 17:07 | disposition home or self-care (01) ==
LOC: ER 14:56
DX: R07.89 Other chest pain (principal); K21.9 Gastro-esophageal reflux disease without esophagitis; J45.909 Unspecified asthma, uncomplicated
CPT/HCPCS: 36415; 71045; 80048; 83735; 84484; 85025; 85379; 93005; 99284